=== PATIENT | female | born 1965 | race Caucasian/White ===

== ENCOUNTER 2017-03-28 18:40 | Emergency (ER) | payer OTHER ==
[2017-03-28] MEDS: ACETAMINOPHEN 500 MG TAB PO (21:38)
[2017-03-28] MEDS: IBUPROFEN 800 MG TAB PO (21:38)
[2017-03-28 22:33] LABS: TROPONIN-I < 0.012 ng/ml (0.00-0.12)
[2017-03-28] MEDS: OSELTAMIVIR 75 MG CAP PO (22:50)
== END 2017-03-28 23:44 | disposition home or self-care (01) ==
LOC: FTE 18:40
DX: J10.1 Influenza due to other identified influenza virus with other respiratory manifestations (principal); H66.93 Otitis media, unspecified, bilateral; J32.9 Chronic sinusitis, unspecified; R07.9 Chest pain, unspecified
CPT/HCPCS: 71046; 84484; 87400; 93005; 99285-25